=== PATIENT | male | born 1960 | race Caucasian/White ===

== ENCOUNTER 2019-01-13 11:39 | Emergency (ER) | payer OTHER, MEDICAID ==
--- NOTE | 2019-01-13 12:03 | EDM.PDOC ---
ED HPI GENERAL MEDICAL PROBLEM - General Chief Complaint: Allergic Reaction Stated Complaint: Tongue swelling, difficulty swallowing Time Seen by Provider: 01/13/19 11:45 Source of Information: Reports: Patient, RN History Limitations: Reports: No Limitations - History of Present Illness INITIAL COMMENTS - FREE TEXT/NARRATIVE: 58 yr male presents with tongue swelling and difficulty swallowing, this started today. States the only new item is Lasix was started about 1 week ago. States he did have [place] berries and strawberries last night, but has had these in past and no difficulties with them. He did have an allergic reaction to Lisinopril in the past. No shortness of breath, no difficulty breathing. - Related Data Allergies Allergy/AdvReac Type Severity Reaction Status Date / Time lisinopril Allergy Swollen Verified 01/13/19 12:37 Tongue Home Meds: Home Meds Metoprolol Succinate 200 mg PO DAILY 01/13/19 [History] amLODIPine [Norvasc] 10 mg PO DAILY 01/13/19 [History] atorvaSTATin Calcium [Lipitor] 20 mg PO DAILY 01/13/19 [History] metFORMIN [Glucophage] 1,000 mg PO BIDMEALS 01/13/19 [History] ED ROS ALLERGIC REACTION - Review of Systems Review Of Systems: See Below Constitutional: Reports: No Symptoms HEENT: Reports: No Symptoms, Other (tongue swelling, difficulty swallowing) Respiratory: Denies: Shortness of Breath, Wheezing Cardiovascular: Reports: Edema. Denies: Chest Pain Endocrine: Reports: Other (hx of prediabetes) GI/Abdominal: Reports: No Symptoms Musculoskeletal: Reports: No Symptoms Skin: Reports: No Symptoms ED EXAM GENERAL NO PERIP PULSE - Physical Exam Exam: See Below Exam Limited By: No Limitations General Appearance: Alert, No Apparent Distress Ears: Hearing Grossly Normal Nose: Normal Inspection, Normal Mucosa Throat/Mouth: Normal Inspection, Normal Lips, Normal Oropharynx, Normal Voice, No Airway Compromise Head: Atraumatic, Normocephalic Neck: Normal Inspection, Supple, Non-Tender Respiratory/Chest: No Respiratory Distress, Lungs Clear, Normal Breath Sounds Cardiovascular: Normal Peripheral Pulses, Regular Rate, Rhythm, Other (swelling to lower extremities and has compression alternating wraps one) Back Exam: Normal Inspection, Full Range of Motion Extremities: Normal Inspection, Normal Range of Motion, Other (Compression wraps noted to lower extremities. Extremity swelling noted.) Neurological: Alert, Oriented, Normal Cognition Psychiatric: Normal Affect, Normal Mood Skin Exam: Warm, Dry, Normal Color Course - Vital Signs Last Recorded V/S: Last Vital Signs Temp 97.9 F 01/13/19 12:17 Pulse 71 01/13/19 12:17 Resp 16 01/13/19 12:17 BP 139/93 H 01/13/19 12:17 Pulse Ox 99 01/13/19 12:17 - Orders/Labs/Meds Labs: Laboratory Tests 01/13/19 01/13/19 Range/Units 11:57 11:57 WBC 6.3 (4.0-11.0) K/uL RBC 4.86 (4.50-6.50) M/uL Hgb 14.1 (13.0-18.0) g/dL Hct 41.9 (40.0-54.0) % MCV 86 (76-96) fL MCH 29.0 (27.0-32.0) pg MCHC 33.7 (31.0-35.0) g/dL RDW 13.4 (11.0-16.0) % Plt Count 230 (150-400) K/uL MPV 9.5 (6.0-10.0) fL Neut % (Auto) 68.5 (45.0-70.0) % Lymph % (Auto) 21.7 (20.0-40.0) % Rowan % (Auto) 8.4 (3.0-10.0) % Eos % (Auto) 1.1 (1.0-5.0) % Baso % (Auto) 0.3 (0.0-0.5) % Neut # (Auto) 4.33 (2.00-7.50) K/uL Lymph # (Auto) 1.37 L (1.50-4.00) K/uL Rowan # (Auto) 0.53 (0.20-0.80) K/uL Eos # (Auto) 0.07 (0.04-0.40) K/uL Baso # (Auto) 0.02 (0.02-0.10) K/uL Sodium 140 (136-145) mmol/L Potassium 3.4 L (3.5-5.1) mmol/L Chloride 102 (98-107) mmol/L Carbon Dioxide 29.8 (21.0-32.0) mmol/L Anion Gap 11.6 (5.0-15.0) mmol/L BUN 19 (8-26) mg/dL Creatinine 1.13 (0.70-1.30) mg/dL Est Cr Clr Drug Dosing 69.78 mL/min Estimated GFR (MDRD) > 60 (>60) MLS/MIN BUN/Creatinine Ratio 16.8 (6-25) Glucose 177 H (74-100) mg/dL Calcium 8.9 (8.5-10.1) mg/dL Meds: Medications Discontinued Medications Generic Name Dose Route Start Last Admin Trade Name Freq PRN Reason Stop Dose Admin Diphenhydramine HCl 50 mg 01/13/19 12:35 01/13/19 11:55 Benadryl PO 01/13/19 12:36 50 mg ONETIME ONE Administration - Re-Assessments/Exams Free Text/Narrative Re-Assessment/Exam: 01/13/19 13:00 Labs were ordered, Benadryl PO given. No significant findings with labs. Pt states swelling has gone down quite a bit to tongue and is feeling better. States he will be busy the next week with getting ready for the [employer] [place] weekend in [place] next weekend, January 18. Recommend to stop the Lasix and return to PCP next week for follow-up of swelling to lower extremities. Recommend Benadryl tid X 2 days, then daily as needed. Monitor for any increase in swelling and monitor for any other possible causes of swelling. Return to ER if symptoms worsen. Departure - Departure Time of Disposition: 13:07 Disposition: Home, Self-Care 01 Condition: Good Clinical Impression: Allergic reaction - Discharge Information *PRESCRIPTION DRUG MONITORING PROGRAM REVIEWED*: Not Applicable *COPY OF PRESCRIPTION DRUG MONITORING REPORT IN PATIENT BETSY: Not Applicable Instructions: Allergies, Adult, [id number], Drug Allergy, [id number] Referrals: PCP,None [Primary Care Provider] - Forms: ED Department Discharge Care Plan Goals: Take Benadryl 25-50mg PO three times a day for the next few days. Stop taking the lasix for now.Return to clinic or hospital if symptoms return or with any questions. - Assessment/Plan Plan: Recommend to stop the Lasix and return to PCP next week for follow-up of swelling to lower extremities. Recommend Benadryl tid X 2 days, then daily as needed. Monitor for any increase in swelling and monitor for any other possible causes of swelling. Return to ER if symptoms worsen.
[2019-01-13] MEDS ORDERED: diphenhydrAMINE 50 MG Cap PO ONE (12:35)
== END 2019-01-13 13:14 | disposition home or self-care (01) ==
LOC: LB.ED 11:39
DX: T50.1X5A Adverse effect of loop [high-ceiling] diuretics, initial encounter (principal); Z88.8 Allergy status to other drugs, medicaments and biological substances; Z79.899 Other long term (current) drug therapy
CPT/HCPCS: 36415; 80048; 85025; 99283; A9270; 99282